=== PATIENT | male | born 1945 | race Caucasian/White ===

== ENCOUNTER → 2021-06-02 | Outpatient (CLI) | payer MEDICARE ==
[2014-08-05 19:59] VITALS: BP 138/78
--- NOTE | 2021-06-03 07:25 | RAD ---
NM THREE PHASE BONE SCAN, NM INJECTION Clinical Indication: Reason: R GREAT TOE cellulitis. Comparison: There are no relevant comparison exams. TECHNIQUE: Patient is injected with 25 mCi of technetium 99m MDP. Anterior and posterior angiographic phase images of the feet acquired. Anterior and posterior immediate static images obtained. After ro utine delay, anterior, posterior, and right and left lateral static images of the feet acquired. Findings: Please note right and left are assumed to be incorrectly labeled on the angiographic and blood pool p hase images. The angiographic phase images demonstrate prominent hyperemia of the right foot compared to the left. There is mild increased tracer uptake of the right foot compared to the left on the immediate static (blood pool) phase images. On delay images there is increased tracer uptake at the tip of the great toe. There is mildly increas ed tracer uptake localizing near the first MTP joint. IMPRESSION: On delay image there is increased tracer uptake at the tip of the great toe. On the angiographic and blood pool phase images there is increased tracer uptake of the right foot. Overall findings may citlali harini osteomyelitis. Electronically signed by: Tyson Ellis MD (06/03/2021 7:23 AM) [facility]
== END ==
LOC: NM 10:22
PROVIDERS: ATTEND Family Medicine
DX: L03.031 Cellulitis of right toe (principal); R68.89 Other general symptoms and signs
CPT/HCPCS: 78315; A9503

== ENCOUNTER → 2021-06-05 | Outpatient (CLI) | payer MEDICARE ==
[~2021-06-05] MED LIST: VANCOMYCIN 2 GM in IV NORMAL SALINE 500ML 500 ML IV ONE
[2021-06-05 14:30] VITALS: BP 150/71
--- NOTE | 2021-06-05 14:56 | NUR ---
Consent signed Yes Previous PICC placement No Past Medical/Surgical history and current diagnosis reviewed Yes Patient Medical /Surgical History Related to PICC line placement None Special considerations for PICC line placement None PICC placement indication oysterman antibiotic usage, Name of PICC Nurse Brinda Cochran RN
--- NOTE | 2021-06-05 14:57 | NUR ---
Procedure: Following complete explanation of the PICC procedure including the indications, risks, and potential complications, informed consent was obtained. The possibility for infection was discussed along with signs, symptoms, and prevention. All the patient's questions were answered. IV Device Protocol was used. Written and verbal patient education was provided. Hand hygiene performed. Standardized central line checklist was utilized. The patient was placed in the supine position, the right arm was prepped with chlorhexidine and patient draped with maximum sterile barrier. 1 mL 1% lidocaine was infiltrated into the skin to provide local anesthesia. A thorough assessment of the right upper extremity completed. Using real-time ultrasound guidance and standardized micro puncture set, the basilic vein was punctured and a peel away sheath was placed using the modified Seldinger technique. A tip location device was used to ensure adequate catheter placement. The catheter was secured using a securement device and an antimicrobial patch was applied directly on the insertion site followed by a transparent dressing. The purple port withdrew blood and flushed without resistance. Patient tolerated the procedure without apparent complication. A single Lumen Power PICC placement successful and uncomplicated. Placement verified by EKG tip confirmation system. Tip located in the low SVC per 3CG. Complications: None
== END | disposition home or self-care (01) ==
LOC: OPINF 13:48
PROVIDERS: ATTEND Family Medicine
DX: L03.031 Cellulitis of right toe (principal); M86.8X7 Other osteomyelitis, ankle and foot; Z45.2 Encounter for adjustment and management of vascular access device
CPT/HCPCS: 36569; 96365; 96366; J3370; J7040